=== PATIENT | female | born 1960 | race Hispanic/Latino ===

== ENCOUNTER → 2018-03-05 | Outpatient (CLI) | payer OTHER ==
--- NOTE | 2018-03-06 07:06 | Diagnostic Imaging Report ---
EXAMINATION: MRI of the lumbar spine without contrast HISTORY: Low back pain radiating to the lower extremities for last 2 months COMPARISON: None. TECHNIQUE: Sagittal T1, T2, STIR; axial T2 and proton density. FINDINGS: It is assumed that there are 5 lumbar vertebrae. Curvature/Alignment: Normal lordosis. Minimal anterolisthesis at L2-L3, L3-L4 and L4-L5. Vertebrae: No evidence of recent fracture, infection, or neoplasm. Conus: Normal, terminating at L1-L2 Cauda equina: Unremarkable. Lower thoracic: Unremarkable. Paraspinal soft tissues: Unremarkable. Degenerative changes: L1-L2: Unremarkable. L2-L3: Mild symmetric disc bulge and facet arthrosis without canal or foraminal stenoses. L3-L4: Mild symmetric disc bulge, ligamenta flava thickening and facet arthrosis. No significant canal or foraminal stenoses. L4-L5: Mild symmetric disc bulge with a small right posterolateral annular fissure, ligamenta flava thickening and facet arthrosis. Minimal canal narrowing. No nerve root compression. L5-S1: Mild symmetric disproportion marginal endplate osteophytes as well as facet arthrosis minimally the right side. No significant spinal canal or foraminal stenoses. Sacroiliac joints: Unremarkable. IMPRESSION: 1. Minimal degenerative spondylolisthesis from L2-L3 to L4-L5. 2. Mild degenerative changes from L2-L3 to L5-S1 without significant spinal canal or foraminal stenosis. No evidence of nerve root compression. Signed by: Dr. Kelli Shah M.D. on 03/06/2018 7:03 AM
== END ==
LOC: MRI 15:29
PROVIDERS: ATTEND Family Medicine
DX: M54.42 Lumbago with sciatica, left side (principal); M54.41 Lumbago with sciatica, right side
CPT/HCPCS: 72148

== ENCOUNTER → 2019-08-04 | Outpatient (CLI) | payer OTHER ==
--- NOTE | 2019-08-04 16:00 | Diagnostic Imaging Report ---
CT CERVICAL SPINE WO HISTORY: Posterior neck pain COMPARISON: None. TECHNIQUE: CT of the cervical spine without contrast. Sagittal and coronal reformations were created. One or more of the following dose reduction techniques were used: Automated exposure control, adjustment of the mA and/or kV according to patient size, and/or utilization of iterative reconstruction technique. FINDINGS: Cervical lordosis is straightened. There is no scoliosis or subluxation. No fractures, compression deformity, or destructive osseous lesions are seen. The craniocervical junction is intact. No gross spinal canal masses are seen. The paravertebral and paraspinal soft tissues are unremarkable. The disc spaces are overall preserved. C2-C3: The left C2 and C3 vertebral bodies are partially fused (with left-sided facet fusion). No gross canal or foraminal stenosis. C3-C4: No gross canal or foraminal stenosis. C4-C5: No gross canal or foraminal stenosis. C5-C6: No gross canal or foraminal stenosis. There is mild to moderate left-sided facet arthrosis at C5-C6. C6-C7: No gross canal or foraminal stenosis. C7-T1: No gross canal or foraminal stenosis. The thyroid gland is mildly heterogeneous. IMPRESSION: 1. No acute osseous abnormalities. 2. The discs are overall preserved. No gross canal or foraminal stenosis. 3. Partial fusion of the left C2 and C3 vertebral bodies. 4. Mild to moderate left C5-C6 facet arthrosis. Signed by: Dr. Ian Durand M.D. on 08/04/2019 3:57 PM
== END ==
LOC: CT 15:13
PROVIDERS: ATTEND Family Medicine
DX: M54.2 Cervicalgia (principal)
CPT/HCPCS: 72125

== ENCOUNTER → 2020-08-05 | Outpatient (CLI) | payer OTHER | LOC: MRI 09:44 | PROVIDERS: ATTEND Family Medicine | DX: M51.36 Other intervertebral disc degeneration, lumbar region (principal); M43.16 Spondylolisthesis, lumbar region | CPT/HCPCS: 72148 ==